=== PATIENT | female | born 2000 | race Caucasian/White ===

== ENCOUNTER 2022-08-14 23:33 | Emergency (ER) | payer BC, OTHER ==
[~2022-08-14 23:33] MED LIST: LIDOCAINE PATCH REMOVAL MC SCH
[2022-08-14] MEDS ORDERED: METHOCARBAMOL 500 MG TABLET PO ONE (23:41)
[2022-08-14] MEDS ORDERED: IBUPROFEN 600 MG TABLET (FP) PO ONE ×2 (23:41→23:44)
[2022-08-14] MEDS ORDERED: LIDOCAINE 5% TOPICAL PATCH TP ONE (23:42)
[2022-08-14] MEDS ORDERED: METHOCARBAMOL 500 MG TABLET ONE (23:44)
[2022-08-14] MEDS ORDERED: LIDOCAINE 5% TOPICAL PATCH ONE (23:44)
[2022-08-14 23:56] VITALS: BP 115/70; PULSE 73; RESP 18; TEMP 98.1; BMI 20.3
== END 2022-08-14 23:58 | disposition home or self-care (01) ==
LOC: FER 23:33
DX: M62.830 Muscle spasm of back (principal)
CPT/HCPCS: 99283-25

== ENCOUNTER 2024-03-12 20:15 | Emergency (ER) | payer BC ==
[2024-03-12 20:27] VITALS: BP 124/80; PULSE 70; RESP 15; TEMP 98.8; BMI 21.1
== END 2024-03-12 23:02 | disposition home or self-care (01) ==
LOC: FER 20:15
DX: G44.229 Chronic tension-type headache, not intractable (principal)
CPT/HCPCS: 70450-TC; 81025; 99284-25